=== PATIENT | female | born 1990 | race Caucasian/White ===

== ENCOUNTER 2017-08-29 12:24 | Emergency (ER) | payer BC, OTHER ==
[2017-08-29] MEDS ORDERED: SODIUM CHLORIDE 0.9% 500 ML IV STA (13:33)
[2017-08-29] MEDS ORDERED: SODIUM CHLORIDE 0.9% 1,000 ML IV STA (13:33)
[2017-08-29 13:51] LABS: Basophils % (A) 0 %; Eosinophils # (A) 0.1 k/uL (0-0.7); Eosinophils % (A) 1 %; HCT 41.6 % (34.0-46.0); Lymphocytes # (A) 0.8 k/uL (1.0-4.8); Lymphocytes % (A) 7 %; MCH 29.8 pg (25.0-35.0); MCHC 33.8 g/dL (31.0-37.0); MCV 88.3 fL (80.0-100.0); Monocytes # (A) 0.3 k/uL (0-1.0); Monocytes % (A) 3 %; Neutrophils # (A) 9.9 k/uL (1.3-7.7); Neutrophils % (A) 89 %; Platelet Count 262 k/uL (150-450); RBC 4.71 m/uL (3.80-5.40); RDW 12.3 % (11.5-15.5); WBC 11.2 k/uL (3.8-10.6)
[2017-08-29] MEDS ORDERED: ONDANSETRON 4 MG/2 ML VIAL IVP STA (13:53)
[2017-08-29] MEDS ORDERED: LORazepam 2 MG/ML INJ IV STA (13:53)
[2017-08-29 14:03] LABS: Appearance,Urine Cloudy (Clear); Bilirubin,Urine Negative (Negative); Blood,Urine Negative (Negative); Color,Urine Yellow; Glucose,Urine (UA) Negative (Negative); Ketones,Urine 2+ (Negative); Leukocyte Esterase,Urine Negative (Negative); Mucus,Urine Many /hpf; Nitrite,Urine Negative (Negative); PH, Urine 8.5 (5.0-8.0); Protein,Urine 2+ (Negative); Squamous Epithelial Cell,Urine 7 /hpf (0-4); Urobilinogen,Urine <2.0 mg/dL (<2.0)
[2017-08-29 14:05] LABS: ALT 22 U/L (9-52); AST 21 U/L (14-36); Albumin 4.3 g/dL (3.5-5.0); Alkaline Phosphatase 59 U/L (38-126); Anion Gap 13 mmol/L; Blood Urea Nitrogen 13 mg/dL (7-17); Calcium 10.1 mg/dL (8.4-10.2); Carbon Dioxide 22 mmol/L (22-30); Chloride 105 mmol/L (98-107); Glucose 109 mg/dL (74-99); Magnesium 1.8 mg/dL (1.6-2.3); Potassium 4.2 mmol/L (3.5-5.1); Sodium 140 mmol/L (137-145); Total Bilirubin 1.7 mg/dL (0.2-1.3)
--- NOTE | 2017-08-29 14:06 | ED ---
Syncope HPI - General Chief Complaint: Syncope Stated Complaint: Syncope Time Seen by Provider: 08/29/17 13:32 Source: patient, RN notes reviewed Mode of arrival: ambulatory Limitations: no limitations - History of Present Illness Initial Comments: 26-year-old female presents emergency Department with chief complaint of passing out. Patient states that she passed out while at home. She states that she knows that she passed out because she states that she was on the ground and next thing no her that daughter was talking to her. Patient states that she's had no chest pain or shortness breath. Patient said very anxious and worked up at this time. Patient did have an episode of vomiting and complains of being nauseated. Patient states that she's had this happen in the past. Patient denies any fever, chills. No cough or chest congestion. Patient denies any abdominal pain. Patient states she was started on Lexapro yesterday has taken 2 doses. - Related Data Home Medications Medication Instructions Recorded Confirmed Cariprazine HCl [Vraylar] 1.5 mg PO HS 08/29/17 08/29/17 Escitalopram [Lexapro] 10 mg PO HS 08/29/17 08/29/17 Previous Rx's Medication Instructions Recorded Ondansetron Odt [Zofran Odt] 4 mg PO Q8HR PRN #10 tab 08/29/17 Allergies Allergy/AdvReac Type Severity Reaction Status Date / Time No Known Allergies Allergy Verified 08/29/17 12:53 Review of Systems ROS Statement: Those systems with pertinent positive or pertinent negative responses have been documented in the HPI. ROS Other: All systems not noted in ROS Statement are negative. Past Medical History Past Medical History: No Reported History History of Any Multi-Drug Resistant Organisms: None Reported Past Surgical History: No Surgical Hx Reported Past Psychological History: Anxiety Smoking Status: Former smoker Past Alcohol Use History: Occasional Past Drug Use History: None Reported General Exam Limitations: no limitations General appearance: alert, in no apparent distress, anxious Head exam: Present: atraumatic, normocephalic, normal inspection Eye exam: Present: normal appearance, PERRL, EOMI. Absent: scleral icterus, conjunctival injection, periorbital swelling ENT exam: Present: normal exam, mucous membranes moist Neck exam: Present: normal inspection. Absent: tenderness, meningismus, lymphadenopathy Respiratory exam: Present: normal lung sounds bilaterally. Absent: respiratory distress, wheezes, rales, rhonchi, stridor Cardiovascular Exam: Present: regular rate, normal rhythm, normal heart sounds. Absent: systolic murmur, diastolic murmur, rubs, gallop, clicks GI/Abdominal exam: Present: soft, normal bowel sounds. Absent: distended, tenderness, guarding, rebound, rigid Back exam: Absent: CVA tenderness (R), CVA tenderness (L) Neurological exam: Present: alert, oriented X3, CN II-XII intact, reflexes normal. Absent: motor sensory deficit Psychiatric exam: Present: anxious Skin exam: Present: warm, dry, intact, normal color. Absent: rash Course Vital Signs 08/29/17 08/29/17 08/29/17 12:46 13:51 15:09 Temperature 97.6 F Pulse Rate 100 92 89 Respiratory 22 18 17 Rate Blood Pressure 106/63 118/77 O2 Sat by Pulse 100 100 100 Oximetry EKG Findings - EKG Comments: EKG Findings:: EKG performed at 13:49 normal sinus rhythm with a rate of 91 MO interval 156 QRS 86 QT/QTC 360/442 Medical Decision Making - Medical Decision Making 26-year-old female presents primarily for syncopal episode, dizziness and and felt nauseated. Patient was hydrated, given antiemetics. Patient is she does feel improved at this time. Patient's labwork, EKG unremarkable. Patient be discharged. - Lab Data Result diagrams: 08/29/17 13:41 08/29/17 13:41 Lab Results 08/29/17 08/29/17 08/29/17 Range/Units 13:41 13:41 13:41 WBC 11.2 H (3.8-10.6) k/uL RBC 4.71 (3.80-5.40) m/uL Hgb 14.0 (11.4-16.0) gm/dL Hct 41.6 (34.0-46.0) % MCV 88.3 (80.0-100.0) fL MCH 29.8 (25.0-35.0) pg MCHC 33.8 (31.0-37.0) g/dL RDW 12.3 (11.5-15.5) % Plt Count 262 (150-450) k/uL Neutrophils % 89 % Lymphocytes % 7 % Monocytes % 3 % Eosinophils % 1 % Basophils % 0 % Neutrophils # 9.9 H (1.3-7.7) k/uL Lymphocytes # 0.8 L (1.0-4.8) k/uL Monocytes # 0.3 (0-1.0) k/uL Eosinophils # 0.1 (0-0.7) k/uL Basophils # 0.0 (0-0.2) k/uL Sodium 140 (137-145) mmol/L Potassium 4.2 (3.5-5.1) mmol/L Chloride 105 (98-107) mmol/L Carbon Dioxide 22 (22-30) mmol/L Anion Gap 13 mmol/L BUN 13 (7-17) mg/dL Creatinine 0.65 (0.52-1.04) mg/dL Est GFR (CKD-EPI)AfAm >90 (>60 ml/min/1.73 sqM) Est GFR (CKD-EPI)NonAf >90 (>60 ml/min/1.73 sqM) Glucose 109 H (74-99) mg/dL Calcium 10.1 (8.4-10.2) mg/dL Magnesium 1.8 (1.6-2.3) mg/dL Total Bilirubin 1.7 H (0.2-1.3) mg/dL AST 21 (14-36) U/L ALT 22 (9-52) U/L Alkaline Phosphatase 59 (38-126) U/L Troponin I <0.012 (0.000-0.034) ng/mL Total Protein 7.0 (6.3-8.2) g/dL Albumin 4.3 (3.5-5.0) g/dL Urine Color Urine Appearance (Clear) Urine pH (5.0-8.0) Ur Specific Lee (1.001-1.035) Urine Protein (Negative) Urine Glucose (UA) (Negative) Urine Ketones (Negative) Urine Blood (Negative) Urine Nitrite (Negative) Urine Bilirubin (Negative) Urine Urobilinogen (<2.0) mg/dL Ur Leukocyte Esterase (Negative) Ur Squamous Epith Cells (0-4) /hpf Urine Mucus (None) /hpf Urine HCG, Qual (Not Detectd) 08/29/17 08/29/17 Range/Units 13:41 13:41 WBC (3.8-10.6) k/uL RBC (3.80-5.40) m/uL Hgb (11.4-16.0) gm/dL Hct (34.0-46.0) % MCV (80.0-100.0) fL MCH (25.0-35.0) pg MCHC (31.0-37.0) g/dL RDW (11.5-15.5) % Plt Count (150-450) k/uL Neutrophils % % Lymphocytes % % Monocytes % % Eosinophils % % Basophils % % Neutrophils # (1.3-7.7) k/uL Lymphocytes # (1.0-4.8) k/uL Monocytes # (0-1.0) k/uL Eosinophils # (0-0.7) k/uL Basophils # (0-0.2) k/uL Sodium (137-145) mmol/L Potassium (3.5-5.1) mmol/L Chloride (98-107) mmol/L Carbon Dioxide (22-30) mmol/L Anion Gap mmol/L BUN (7-17) mg/dL Creatinine (0.52-1.04) mg/dL Est GFR (CKD-EPI)AfAm (>60 ml/min/1.73 sqM) Est GFR (CKD-EPI)NonAf (>60 ml/min/1.73 sqM) Glucose (74-99) mg/dL Calcium (8.4-10.2) mg/dL Magnesium (1.6-2.3) mg/dL Total Bilirubin (0.2-1.3) mg/dL AST (14-36) U/L ALT (9-52) U/L Alkaline Phosphatase (38-126) U/L Troponin I (0.000-0.034) ng/mL Total Protein (6.3-8.2) g/dL Albumin (3.5-5.0) g/dL Urine Color Yellow Urine Appearance Cloudy H (Clear) Urine pH 8.5 H (5.0-8.0) Ur Specific Lee 1.020 (1.001-1.035) Urine Protein 2+ H (Negative) Urine Glucose (UA) Negative (Negative) Urine Ketones 2+ H (Negative) Urine Blood Negative (Negative) Urine Nitrite Negative (Negative) Urine Bilirubin Negative (Negative) Urine Urobilinogen <2.0 (<2.0) mg/dL Ur Leukocyte Esterase Negative (Negative) Ur Squamous Epith Cells 7 H (0-4) /hpf Urine Mucus Many H (None) /hpf Urine HCG, Qual Not Detected (Not Detectd) Disposition Clinical Impression: Vasovagal syncope, Dehydration, Nausea & vomiting Disposition: HOME SELF-CARE Condition: Stable Instructions: Syncope (ED) Additional Instructions: Please return to the Emergency Department if symptoms worsen or any other concerns. Prescriptions: Ondansetron Odt [Zofran Odt] 4 mg PO Q8HR PRN #10 tab PRN Reason: Nausea Referrals: Cristian Reinoso DO [Primary Care Provider] - 1-2 days Time of Disposition: 15:27
[2017-08-29] MEDS ORDERED: SODIUM CHLORIDE 0.9% 1,000 ML IV ONE (14:19)
[2017-08-29] MEDS ORDERED: METOCLOPRAMIDE 5 MG/ML 2 ML VIAL IVP STA (14:54)
[2017-08-29 15:10] VITALS: RESP 17
[2017-08-29] MEDS ORDERED: KETOROLAC 30 MG/ML 1 ML VIAL IVP STA (15:35)
[2017-08-29 15:54] VITALS: BP 114/70; PULSE 86; TEMP 97.7
== END 2017-08-29 15:52 | disposition home or self-care (01) ==
LOC: EC 12:24
DX: E86.0 Dehydration (principal); R55 Syncope and collapse; R11.2 Nausea with vomiting, unspecified; F41.9 Anxiety disorder, unspecified; Z87.891 Personal history of nicotine dependence; Z79.899 Other long term (current) drug therapy
CPT/HCPCS: 36415; 93005; 80053; 83735; 84484; 85025; 81001; 81025; 99284; 96374; 96375 ×3; 96361 ×2; J2060; J2765; J2405; J1885

== ENCOUNTER → 2018-07-29 | Outpatient (CLI) | payer OTHER ==
[2018-07-30 00:19] LABS: DHEA Sulfate 174.4 ug/dL (26.0-430.0)
[2018-07-30 00:21] LABS: Progesterone 0.5 ng/mL
== END ==
LOC: LABWHC1 15:52
PROVIDERS: ATTEND Obstetrics & Gynecology
DX: N97.0 Female infertility associated with anovulation (principal)
CPT/HCPCS: 36415; 82627; 82670; 83001; 83002; 84144; 84146; 84403

== ENCOUNTER 2019-05-03 21:51 | Observation (INO) | payer OTHER ==
[2019-05-03] MEDS ORDERED: ONDANSETRON 4 MG/2 ML VIAL IVP STA (22:38)
[2019-05-03] MEDS ORDERED: MORPHINE SULFATE 4 MG/ML SYRINGE IVP STA (22:39)
[2019-05-03 22:51] LABS: Basophils % (A) 0 %; Eosinophils # (A) 0.1 k/uL (0-0.7); Eosinophils % (A) 1 %; HCT 33.6 % (34.0-46.0); HGB 11.9 gm/dL (11.4-16.0); Lymphocytes # (A) 1.3 k/uL (1.0-4.8); Lymphocytes % (A) 23 %; MCHC 35.4 g/dL (31.0-37.0); MCV 90.2 fL (80.0-100.0); Mean Platelet Volume 7.2; Monocytes # (A) 0.3 k/uL (0-1.0); Monocytes % (A) 4 %; Neutrophils % (A) 70 %; Platelet Count 275 k/uL (150-450); RBC 3.72 m/uL (3.80-5.40); WBC 5.7 k/uL (3.8-10.6)
[2019-05-03 23:01] LABS: ALT 18 U/L (9-52); AST 21 U/L (14-36); African American GFR (CKD) >90 (>60 ml/min/1.73 sqM); Albumin 4.4 g/dL (3.5-5.0); Alkaline Phosphatase 47 U/L (38-126); Anion Gap 9 mmol/L; Blood Urea Nitrogen 11 mg/dL (7-17); Calcium 9.7 mg/dL (8.4-10.2); Carbon Dioxide 22 mmol/L (22-30); Chloride 104 mmol/L (98-107); Glucose 112 mg/dL (74-99); Non-African American GFR(CKD) >90 (>60 ml/min/1.73 sqM); Potassium 3.8 mmol/L (3.5-5.1); Sodium 135 mmol/L (137-145); Total Bilirubin 0.7 mg/dL (0.2-1.3); Total Protein 6.9 g/dL (6.3-8.2)
--- NOTE | 2019-05-03 23:25 | ED ---
Abdominal Pain HPI - General Chief Complaint: Abdominal Pain Stated Complaint: 8 weeks pg abd pain Time Seen by Provider: 05/03/19 22:07 Source: patient Mode of arrival: ambulatory Limitations: no limitations - History of Present Illness Initial Comments: Sheila is a 78 is a healthy female who currently believe she is 8-9 weeks last menses was March 04 she's not had any ultrasounds or OB appointments in this as of yet. Patient presents the ER today for evaluation of sudden onset lower abdominal pain, cramping with no vaginal bleeding or discharge. Patient reports she was in her usual state of health this evening, she went to work and went while at work developed sudden onset of lower abdominal pain. - Related Data Allergies Allergy/AdvReac Type Severity Reaction Status Date / Time No Known Allergies Allergy Verified 05/03/19 22:06 Review of Systems ROS Statement: Those systems with pertinent positive or pertinent negative responses have been documented in the HPI. ROS Other: All systems not noted in ROS Statement are negative. Past Medical History Past Medical History: No Reported History History of Any Multi-Drug Resistant Organisms: None Reported Past Surgical History: Orthopedic Surgery Past Psychological History: Anxiety Smoking Status: Former smoker Past Alcohol Use History: None Reported Past Drug Use History: None Reported General Exam - General Exam Comments Initial Comments: Physical Exam GENERAL: Patient is well-developed and well-nourished. Patient is nontoxic and well- hydrated and is in no distress. HENT: Normocephalic, Atraumatic. EYES: PERRL, EOMI PULMONARY: Unlabored respirations. No audible rales rhonchi or wheezing was noted. CARDIOVASCULAR: There is a regular rate and rhythm without any murmurs gallops or rubs. ABDOMEN: Tenderness to palpation in lower abdomen with guarding Bedside ultrasound with no obvious free fluid in pelvis, splenorenal or hepatorenal areas, however uterus appeared empty and patient had significant pain with exam SKIN: Skin is clear with no lesions or rashes and otherwise unremarkable. : Deferred NEUROLOGIC: Patient is alert and oriented x3. Moving all extremities spontaneously MUSCULOSKELETAL: Normal extremities with adequate strength and full range of motion. No lower extremity swelling or edema. No calf tenderness. PSYCHIATRIC: Normal psychiatric evaluation. Limitations: no limitations Course Vital Signs 05/03/19 05/03/19 05/03/19 22:03 22:51 23:55 Temperature 97.4 F L 97.5 F L Pulse Rate 77 83 Respiratory 28 H 20 16 Rate Blood Pressure 111/77 125/84 102/74 O2 Sat by Pulse 100 100 Oximetry 05/04/19 00:00 Temperature Pulse Rate Respiratory Rate Blood Pressure 109/90 O2 Sat by Pulse Oximetry Medical Decision Making - Medical Decision Making The patient was seen and evaluated, history was obtained from patient and at bedside 8-9 week 28-year-old female with severe lower abdominal pain no obvious free fluid on bedside ultrasound Labs and ultrasound imaging were ordered Zofran and Morphine were ordered Labs resulted with a stable hemoglobin, normal kidney function and electrolytes Patient remained hemodynamically stable Pain was not well-controlled with initial dose of morphine and Dilaudid was ordered Ultrasound results and with concerns for an ectopic measuring 7 x 3 x 2 cm in the left ovary with debris and complex fluid in the pelvis At this time BHCG has not resulted - I contacted labs that reported that the beta hCG was significantly elevated and being diluted for results Patient was updated on these findings, patient has previously Dr. with Dr. Spears therefore his group was paged Patient care was discussed with Dr. Bowen who will plan for emergent exploratory laparoscopy The patient was updated on this plan as well The patient remained hemodynamically stable with pain only moderately controlled with repeat doses of analgesia, Dr. Carr arrived at bedside for preoperative evaluation and transferred patient to the operating suite - Lab Data Result diagrams: 05/03/19 21:05 05/03/19 21:05 Lab Results 05/03/19 05/03/19 05/03/19 Range/Units 21:05 21:05 21:05 WBC 5.7 (3.8-10.6) k/uL RBC 3.72 L (3.80-5.40) m/uL Hgb 11.9 (11.4-16.0) gm/dL Hct 33.6 L (34.0-46.0) % MCV 90.2 (80.0-100.0) fL MCH 32.0 (25.0-35.0) pg MCHC 35.4 (31.0-37.0) g/dL RDW 12.0 (11.5-15.5) % Plt Count 275 (150-450) k/uL Neutrophils % 70 % Lymphocytes % 23 % Monocytes % 4 % Eosinophils % 1 % Basophils % 0 % Neutrophils # 4.0 (1.3-7.7) k/uL Lymphocytes # 1.3 (1.0-4.8) k/uL Monocytes # 0.3 (0-1.0) k/uL Eosinophils # 0.1 (0-0.7) k/uL Basophils # 0.0 (0-0.2) k/uL Sodium 135 L (137-145) mmol/L Potassium 3.8 (3.5-5.1) mmol/L Chloride 104 (98-107) mmol/L Carbon Dioxide 22 (22-30) mmol/L Anion Gap 9 mmol/L BUN 11 (7-17) mg/dL Creatinine 0.65 (0.52-1.04) mg/dL Est GFR (CKD-EPI)AfAm >90 (>60 ml/min/1.73 sqM) Est GFR (CKD-EPI)NonAf >90 (>60 ml/min/1.73 sqM) Glucose 112 H (74-99) mg/dL Calcium 9.7 (8.4-10.2) mg/dL Total Bilirubin 0.7 (0.2-1.3) mg/dL AST 21 (14-36) U/L ALT 18 (9-52) U/L Alkaline Phosphatase 47 (38-126) U/L Total Protein 6.9 (6.3-8.2) g/dL Albumin 4.4 (3.5-5.0) g/dL HCG, Quant 08357.8 mIU/mL Blood Type O Positive Blood Type Recheck O Pos Bld Type Recheck Status No Antibody Screen NEGATIVE Critical Care Time Critical Care Time: Yes Total Critical Care Time: 30 Critical Care Time: Critical Care Time Critical care time was exclusive of separately billable procedures and treating other patients and teaching time. Critical care was necessary to treat or prevent imminent or life-threatening deterioration. Given the critical condition in which the patient arrived, the patient was immediately assessed by myself and the nurse, and cardiac monitoring initiated due to the potential for rapid decompensation of the patient's clinical condition. During the course of the patients stay, I spent a considerable amount of time at the bedside performing serial re-evaluations of the patient's hemodynamic and clinical status because of the recognized potential threat to life or limb in this condition. I then had a chance to review not only all of the available current laboratory and radiographic studies obtained today, but I also reviewed old records available to me at the time. Additionally, any ancillary information available including monotype setter records were reviewed. Sequential vital signs were obtained. Disposition Clinical Impression: Ectopic Disposition: ADMITTED IP TO THIS HOSP Condition: Serious Is patient prescribed a controlled substance at d/c from ED?: No
[2019-05-03] MEDS ORDERED: HYDROmorphone 1 MG/ML 1 ML SYRINGE IVP STA (23:45)
--- NOTE | 2019-05-03 23:45 | US ---
EXAMINATION TYPE: Transabdominal DATE OF EXAM: 05/03/2019 11:27 PM COMPARISON: [facility] 2016 CLINICAL HISTORY: pain concern for ectopic. Pain since 9 pm. Concern for ectopic. . EXAM PERFORMED: Transvaginal (TV) and Transabdominal (TA) EXAM MEASUREMENTS: GESTATIONAL AGE / DATING Physician Established: Not yet established Dates by LMP: (8 weeks/4 days) EDC: 12/09/2019 Dates by First Scan: This is first scan Dates by Current Scan for: No sign of IUP at this time. MATERNAL ANATOMY Uterus: 8.8 x 5.3 x 4.3 cm. Endometrium appears thickened. Right Ovary: 5.0 x 2.8 x 3.2 cm. Appears enlarged. Follicles seen. Left Ovary: 3.7 x 2.5 x 2.4 cm. Follicles seen. Post CDS / Adnexa: Large amount of complex fluid seen. Echogenic area measured adjacent to the left o vary: 7.1 x 3.0 x 2.0 cm. Presence of free fluid: Yes, large amount of complex fluid seen. Debris seen. Presence of corpus luteal cyst: not seen GESTATION / SURVEY IUP: No IUP seen at this time Date of LMP: 03/04/2019 Beta HcG (if available): Not available. Patient in severe pain. Limited transabdominal scan. IMPRESSION: The uterus is empty. There is complex fluid in the pelvis and 7 x 3 cm x 2 cm area of ech ogenicity in the left adnexal region. Ectopic is suspected. This exam was discussed with ER physician at 11:45 PM..
[2019-05-03 23:56] LABS: HCG,Quantitative Serum 19498.8 mIU/mL
[2019-05-04] MEDS ORDERED: ONDANSETRON 4 MG/2 ML VIAL IVP PRN ×2 (00:16→03:36)
[2019-05-04] MEDS ORDERED: NALOXONE 0.4 MG/ML 1 ML VIAL IV PRN ×2 (00:16→03:36)
[2019-05-04] MEDS ORDERED: MORPHINE SULFATE 4 MG/ML SYRINGE IV PRN (00:16)
[2019-05-04] MEDS ORDERED: SODIUM CHLORIDE 0.9% 1,000 ML IV SCH (00:30)
--- NOTE | 2019-05-04 01:15 | P.HPOB ---
History of Present Illness H&P Date: 05/04/19 Chief Complaint: Severe abdominal pain This is a 28-year-old female 2 para 1 with a last menstrual period of 03/04/2019 who presents to the emergency room with severe lower abdominal pain that began at 9:20 PM tonight. She has been feeling nauseated but this is been normal throughout her . She denies any vaginal bleeding. She states the pain is all away across her lower abdomen and it hurts to move at all. Ultrasound in ER shows a uterus with no IUP seen. There is a large complex fluid collection adjacent to the left ovary measuring 7.1 x 3 x 2 cm with debris and fluid seen in the cul-de-sac. Right ovary is slightly enlarged and left ovary appears normal size. Her blood type is positive. Her vital signs are stable. Obstetrical history: . History of 1 vaginal delivery at term. Gynecologic history: No history of sexual transmitted diseases. Social history: She is and works at [employer]. Review of Systems Constitutional: Denies chills, Denies fever Eyes: denies blurred vision, denies pain Ears, nose, mouth and throat: Denies headache, Denies sore throat Cardiovascular: Denies chest pain, Denies shortness of breath Gastrointestinal: Reports abdominal pain, Reports nausea, Reports vomiting Genitourinary: Reports pelvic pain, Reports , Denies abnormal vaginal bleeding Musculoskeletal: Reports low back pain Neurological: Denies numbness, Denies weakness Psychiatric: Denies anxiety, Denies depression Past Medical History Past Medical History: No Reported History History of Any Multi-Drug Resistant Organisms: None Reported Past Surgical History: Orthopedic Surgery (Left shoulder) Past Psychological History: Anxiety Smoking Status: Former smoker Past Alcohol Use History: None Reported Past Drug Use History: None Reported Medications and Allergies Allergies Allergy/AdvReac Type Severity Reaction Status Date / Time No Known Allergies Allergy Verified 05/03/19 22:06 Exam Osteopathic Statement: *. No significant issues noted on an osteopathic structural exam other than those noted in the History and Physical/Consult. Vital Signs Temp Pulse Resp BP Pulse Ox 05/04/19 00:00 109/90 05/03/19 23:55 97.5 F L 83 16 102/74 100 05/03/19 22:51 20 125/84 05/03/19 22:03 97.4 F L 77 28 H 111/77 100 Intake and Output 05/03/19 05/03/19 05/04/19 14:59 22:59 06:59 Other: Weight 61.235 kg Gen.: Well-developed well-nourished female in acute distress when moving. HEENT: Within normal limits Heart: Regular rate and rhythm Lungs: Clear to auscultation bilaterally Abdomen: Soft, tender to palpation in the lower abdomen especially with rebound and guarding. Pelvic exam: Deferred to the OR. Extremities: Negative Homans Results Result Diagrams: 05/03/19 21:05 05/03/19 21:05 Abnormal Lab Results - Last 24 Hours (Table) 05/03/19 05/03/19 Range/Units 21:05 21:05 RBC 3.72 L (3.80-5.40) m/uL Hct 33.6 L (34.0-46.0) % Sodium 135 L (137-145) mmol/L Glucose 112 H (74-99) mg/dL Assessment and Plan (1) Ectopic Current Visit: Yes Status: Acute Code(s): O00.90 - UNSPECIFIED ECTOPIC WITHOUT INTRAUTERINE SNOMED Code(s): 82799919 (2) Acute abdominal pain Current Visit: Yes Status: Acute Code(s): R10.9 - UNSPECIFIED ABDOMINAL PAIN SNOMED Code(s): 945211222 Plan: Admission for probable ectopic . I have discussed with the patient and her the need to proceed with exploratory laparotomy with possible salpingectomy and possible oophorectomy due to probable ruptured ectopic. I have explained the risks and benefits of surgery in detail to patient and her . I've advised based on the size of this mass in her abdomen, it is necessary to proceed with laparotomy versus laparoscopy in this instance. She understands and has signed consent forms. I have discussed the risks, benefits, and alternative therapies for the above- mentioned procedure and for both sedation/anesthesia as well as necessary blood products administration, if indicated, as they pertain to this patient. The patient has indicated her understanding and acceptance of the risks and procedures discussed.
[2019-05-04] MEDS ORDERED: GLYCOPYRROLATE 0.2 MG/ML 2 ML VIAL ONE (01:35)
[2019-05-04] MEDS ORDERED: LIDOCAINE 1% INJ 10MG/ML (20 ML MDV) ONE (01:35)
[2019-05-04] MEDS ORDERED: MIDAZOLAM 2 MG/2 ML VIAL ONE (01:35)
[2019-05-04] MEDS ORDERED: NEOSTIGMINE 1 MG/ML 10 ML VIAL ONE (01:35)
[2019-05-04] MEDS ORDERED: PROPOFOL 10 MG/ML 20 ML VIAL IV ONE (01:35)
[2019-05-04] MEDS ORDERED: fentaNYL (PF) 50 MCG/ML 2 ML AMP ONE (01:35)
[2019-05-04] MEDS ORDERED: LACTATED RINGERS 1,000 ML IV ONE ×2 (01:35→02:13)
[2019-05-04] MEDS ORDERED: ROCURONIUM BROMIDE 10 MG/ML 10 ML VIAL IV ONE (01:35)
[2019-05-04] MEDS ORDERED: SUCCINYLCHOLINE CHLORIDE 100 MG/5 ML SYR IV ONE (01:35)
[2019-05-04] MEDS ORDERED: PHENYLEPHRINE-0.9% NACL SYG 1 MG/10 ML SYRINGE ONE (01:35)
[2019-05-04] MEDS ORDERED: ceFAZolin 1,000 MG VIAL ONE (01:35)
--- NOTE | 2019-05-04 02:40 | P.OP ---
Date of Procedure: 05/04/19 Preoperative Diagnosis: Probable ruptured ectopic Postoperative Diagnosis: Ruptured right tubal ectopic Procedure(s) Performed: Exploratory laparotomy Right salpingectomy Evacuation of hemoperitoneum Anesthesia: EMILY Surgeon: Suzy Bowen Control Panel Assembler #1: Juliet Ruffin Estimated Blood Loss (ml): 20 (500 mL of hemoperitoneum was evacuated) Pathology: other (Right fallopian tube with ruptured ectopic) Condition: stable Disposition: floor Indications for Procedure: This is a 28-year-old female 2 para 1 who presented to the emergency room with acute abdominal pain and ultrasound showing likely ruptured ectopic . She consented to exploratory laparotomy with possible appendectomy, possible oophorectomy. I have discussed the risks, benefits, and alternative therapies for the above- mentioned procedure and for both sedation/anesthesia as well as necessary blood products administration, if indicated, as they pertain to this patient. The patient has indicated her understanding and acceptance of the risks and pr ocedures discussed. Operative Findings: There is a ectopic in the right fallopian tube very close to the corneal region and in this area there is a hole in the tube were most likely the ectopic was expelled. A large amount of blood clot and hemoperitoneum was noted in the pelvic cul-de-sac, proximally 500 mL worth. The left fallopian tube appeared normal. Both ovaries appeared normal. Of note, both fallopian tubes did appear fairly long. Uterus appeared normal. Description of Procedure: The patient was taken to the operating room where she is placed in the dorsal supine position. She is prepped and draped in the normal sterile fashion including Luther catheter insertion. A small Pfannenstiel skin incision was made with a scalpel. A second knife was used to carry the incision down to the underlying layer of fascia. The fascia was nicked in the midline and extended laterally bilaterally with Brooke scissors. The superior aspect of the fascial incision was grasped with Brayden clamps, and dissected off the underlying rectus muscle in the midline with Brooke scissors. The inferior aspect of the fascial incision was then grasped with Brayden clamps, dissected off the underlying rectus muscle in the midline with Brooke scissors. Next the peritoneum was identified and tented up with 2 hemostats. This was entered sharply with the scalpel and then extended superiorly and in fairly with Metzenbaum scissors. Suction was also placed immediately upon opening due to a large amount of blood in the pelvis. Suctioning was carried out until the uterus was visible. Multiple clots were removed. The right fallopian tube was inspected and the ectopic was noted near the corneal region of the uterus and the proximal tube and there was a small hole in the tube at this area. The fallopian tube was grasped with a Elsi clamp as close to the corneal region as possible and then a second Elsi clamp was used to clamp the remainder of the mesosalpinx. The tube was then removed with Metzenbaum scissors and sent to pathology. The pedicles are then sutured with 0 Vicryl suture in interrupted [id number] stitch. Several interrupted stitches were also placed for hemostasis. Once good hemostasis was noted, copious irrigation was carried out with warm saline. The area appeared hemostatic. All sponges were removed and sponge counts were correct. All retractors were removed. Peritoneum was then sutured with 0 Vicryl suture in a running fashion. Muscle layers reapproximated with 0 Vicryl suture in interrupted fashion. Next the fascia was then closed with 0 PDS suture with 2 sutures meeting in the midline and the knots buried on either side and in the midline. Next the subcutaneous tissue was closed with 2- 0 Vicryl suture in a running fashion. Skin was then closed with shannan. All sponge and needle counts are correct. The patient is then taken to recovery room in stable condition.
[2019-05-04] MEDS: HYDROmorphone 0.5 MG/0.5 ML SYRINGE IVP PRN ×2 (03:02→03:12)
[2019-05-04] MEDS: LACTATED RINGERS 1,000 ML IV SCH ×4 (03:05→19:22)
[2019-05-04] MEDS ORDERED: LACTATED RINGERS 1,000 ML IV SCH (03:36)
[2019-05-04] MEDS ORDERED: SIMETHICONE 80 MG CHEWABLE PO PRN (03:36)
[2019-05-04] MEDS ORDERED: METOCLOPRAMIDE 5 MG/ML 2 ML VIAL IVP PRN (03:36)
[2019-05-04] MEDS ORDERED: IBUPROFEN 600 MG TAB PO PRN (03:36)
[2019-05-04] MEDS ORDERED: diphenhydrAMINE 50 MG/ML 1 ML VIAL IVP PRN (03:36)
[2019-05-04] MEDS ORDERED: HYDROmorphone PCA 10 MG/50 ML BAG IV PRN (04:00)
[2019-05-04] MEDS: SENNOSIDES-DOCUSATE SODIUM 1 EACH TAB PO SCH ×2 (08:19→20:05)
[2019-05-04] MEDS: KETOROLAC 30 MG/ML 1 ML VIAL IVP PRN ×2 (12:34→20:09)
[2019-05-04] MEDS ORDERED: diphenhydrAMINE 50 MG/ML 1 ML VIAL IVP STA (12:45)
[2019-05-04] MEDS ORDERED: diphenhydrAMINE 50 MG/ML 1 ML VIAL IM STA (12:51)
[2019-05-04 14:18] VITALS: RESP 18
[2019-05-04] MEDS ORDERED: Acetaminophen-Codeine 300-30mg TAB PO PRN ×2 (17:10)
[2019-05-05] MEDS: LACTATED RINGERS 1,000 ML IV SCH ×2 (00:06→11:38)
[2019-05-05] MEDS ORDERED: ACETAMINOPHEN TAB 325 MG TAB PO PRN (01:31)
[2019-05-05] MEDS: KETOROLAC 30 MG/ML 1 ML VIAL IVP PRN (04:08)
[2019-05-05 04:33] VITALS: TEMP 98.7
[2019-05-05 06:09] VITALS: BP 104/65; PULSE 107
[2019-05-05] MEDS: SENNOSIDES-DOCUSATE SODIUM 1 EACH TAB PO SCH (08:16)
[2019-05-05 08:30] LABS: Basophils % (A) 0 %; Eosinophils % (A) 1 %; HCT 20.4 % (34.0-46.0); Lymphocytes # (A) 0.9 k/uL (1.0-4.8); Lymphocytes % (A) 22 %; MCH 31.1 pg (25.0-35.0); MCHC 33.4 g/dL (31.0-37.0); MCV 93.1 fL (80.0-100.0); Mean Platelet Volume 8.2; Monocytes # (A) 0.2 k/uL (0-1.0); Monocytes % (A) 5 %; Neutrophils # (A) 2.8 k/uL (1.3-7.7); Neutrophils % (A) 71 %; Platelet Count 193 k/uL (150-450); RBC 2.19 m/uL (3.80-5.40); RDW 12.2 % (11.5-15.5)
[2019-05-05 08:37] LABS: HGB 6.8 gm/dL (11.4-16.0)
--- NOTE | 2019-05-26 00:35 | P.DS ---
Providers Date of admission: 05/04/19 00:17 Expected date of discharge: 05/05/19 Attending physician: Suzy Bowen Primary care physician: Cristian Reinoso - Discharge Diagnosis(es) (1) Ectopic Status: Acute (2) Status post exploratory laparotomy Status: Acute Hospital Course: Patient presented with ruptured ectopic . She underwent an exploratory laparotomy and right salpingectomy. She was discharged postoperative day #1 in stable condition to follow-up with me in one week. Patient Condition at Discharge: Serious Plan - Discharge Summary Discharge Rx Participant: Yes New Discharge Prescriptions: New Ibuprofen [Motrin] 600 mg PO Q6HR PRN #30 tab PRN Reason: Mild Discomfort Acetaminophen-Codeine 300-30mg [Tylenol w/codeine #3] 2 each PO Q6HR PRN #24 tab PRN Reason: Pain Ibuprofen [Motrin] 600 mg PO Q6HR PRN #30 tab PRN Reason: Mild Pain Or Fever >= 100.5 Discharge Medication List Acetaminophen-Codeine 300-30mg [Tylenol w/codeine #3] 2 each PO Q6HR PRN #24 tab 05/05/19 [Rx] Ibuprofen [Motrin] 600 mg PO Q6HR PRN #30 tab 05/05/19 [Rx] Ibuprofen [Motrin] 600 mg PO Q6HR PRN #30 tab 05/05/19 [Rx] Follow up Appointment(s)/Referral(s): Carmel Spears DO [Doctor of Osteopathic Medicine] - 05/12/19 1:30 pm Cristian Reinoso DO [Primary Care Provider] - 1-2 days (office will call patient) Discharge Disposition: HOME SELF-CARE
== END 2019-05-05 11:57 | disposition home or self-care (01) ==
LOC: EC 21:51 → 4FBP 05-04 00:17 → 4MS4W 05-04 19:46
PROVIDERS: ADMIT Obstetrics & Gynecology; ATTEND Obstetrics & Gynecology
DX: O00.101 Right tubal pregnancy without intrauterine pregnancy (principal); K66.1 Hemoperitoneum; F41.9 Anxiety disorder, unspecified; Z98.890 Other specified postprocedural states; Z87.891 Personal history of nicotine dependence; Z86.73 Personal history of transient ischemic attack (TIA), and cerebral infarction without residual deficits; Z86.69 Personal history of other diseases of the nervous system and sense organs; Z79.899 Other long term (current) drug therapy
CPT/HCPCS: 96374; 96375; 99285; 36415; 86900; 86901; 88305; 80053; 85025 ×2; 86850; 84702; 76801; 76817; 59120; G0378 ×3; J2250; J2270; J1200; J2710; J2405 ×2; J0690; J2001; J3010; J1885 ×2; J1170 ×3; J2370; J0330; J2704

== ENCOUNTER 2019-11-18 07:53 | Day surgery (SDC) | payer OTHER ==
[2019-11-15 14:34] VITALS: BMI 22.4
--- NOTE | 2019-11-17 22:52 | P.HPOB ---
History of Present Illness H&P Date: 11/17/19 Chief Complaint: MAEGAN-1 with high-grade Pap 29-year-old presents for loop electrocautery excision procedure. She had a high-grade Pap smear with a colposcopy that showed MAEGAN-1. With the discrepancy and 2 Pap smears revealing high-grade lesions, LEEP is indicated. Review of Systems All systems: negative Constitutional: Denies chills, Denies fever Eyes: denies blurred vision, denies pain Ears, nose, mouth and throat: Denies headache, Denies sore throat Cardiovascular: Denies chest pain, Denies shortness of breath Respiratory: Denies cough Gastrointestinal: Denies abdominal pain, Denies diarrhea, Denies nausea, Denies vomiting Genitourinary: Denies dysuria, Denies hematuria Musculoskeletal: Denies myalgias Integumentary: Denies pruritus, Denies rash Neurological: Denies numbness, Denies weakness Psychiatric: Denies anxiety, Denies depression Endocrine: Denies fatigue, Denies weight change Past Medical History Past Medical History: No Reported History Additional Past Medical History / Comment(s): Abnormal pap smear,nexplanon left arm History of Any Multi-Drug Resistant Organisms: None Reported Past Surgical History: Orthopedic Surgery Additional Past Surgical History / Comment(s): laparoscopy rt fallopian tube removal for tubal Past Anesthesia/Blood Transfusion Reactions: No Reported Reaction Additional Past Anesthesia/Blood Transfusion Reaction / Comment(s): no hx blood transfusion Smoking Status: Former smoker - Past Family History Mother Family Medical History: No Reported History Father Additional Family Medical History / Comment(s): glaucoma Medications and Allergies Home Medications Medication Instructions Recorded Confirmed Type No Known Home Medications 11/15/19 11/15/19 History Allergies Allergy/AdvReac Type Severity Reaction Status Date / Time No Known Allergies Allergy Verified 11/15/19 14:28 Exam Osteopathic Statement: *. No significant issues noted on an osteopathic structural exam other than those noted in the History and Physical/Consult. 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 Loop electrocautery excision procedure
[~2019-11-18 07:53] MED LIST: DEXAMETHASONE SOD PHOSPHATE 10 MG/ML 1 ML VIAL IV ONE; HYDROmorphone 0.5 MG/0.5 ML SYRINGE IVP PRN; LACTATED RINGERS 1,000 ML IV SCH; ONDANSETRON 4 MG/2 ML VIAL IVP ONE; Pre Op ABX Message 1 EACH MISC MISCELLANE ONE
[2019-11-18] MEDS ORDERED: ONDANSETRON 4 MG/2 ML VIAL ONE (08:21)
[2019-11-18] MEDS ORDERED: LIDOCAINE 1% (10MG/ML) FOR IV START INTRADERMA ONE (08:30)
[2019-11-18 08:38] VITALS: RESP 16
[2019-11-18] MEDS ORDERED: PROPOFOL 10 MG/ML 20 ML VIAL IV ONE (08:55)
[2019-11-18] MEDS ORDERED: KETOROLAC 30 MG/ML 1 ML VIAL ONE (08:55)
[2019-11-18] MEDS ORDERED: MIDAZOLAM 2 MG/2 ML VIAL ONE (08:55)
[2019-11-18] MEDS ORDERED: LIDOCAINE 1% INJ 10MG/ML (20 ML MDV) ONE (08:55)
[2019-11-18] MEDS ORDERED: fentaNYL (PF) 50 MCG/ML 2 ML AMP ONE (08:55)
[2019-11-18] MEDS ORDERED: FERRIC SUBSULFATE (MONSELS) JAR TOPICAL ONE (09:23)
[2019-11-18] MEDS ORDERED: ACETIC ACID 15 DROPS/ML DROPS MISCELLANE ONE ×2 (09:23)
--- NOTE | 2019-11-18 09:36 | P.OP ---
Date of Procedure: 11/18/19 Preoperative Diagnosis: 1. High-grade Pap smear with MAEGAN-1 on colposcopy Postoperative Diagnosis: 1. High-grade Pap smear with MAEGAN-1 on colposcopy Procedure(s) Performed: Loop electrocautery excision procedure Anesthesia: GETA Surgeon: Carmel Spears Estimated Blood Loss (ml): 1 IV fluids (ml): 300 Urine output (ml): 50 Pathology: other (Cervical cone) Condition: stable Disposition: PACU Operative Findings: Normal appearing cervix Description of Procedure: Patient is taken the operating room where general anesthesia was obtained without difficulty. She is prepped and draped in normal sterile fashion dorsal lithotomy position, legs placed in candycane stirrups. The bladder was drained of all urine. A coated bivalve speculum was placed in the vagina and the cervix was cleaned off with acetic acid. The 2 cm loop is used to obtain a biopsy. The instrument was swept from patient's right to left. The cervical cone biopsy was sent for pathology. The crater left in the cervix was cauterized with the ball cautery. Monsel's was then placed. Excellent hemostasis was achieved. Patient tolerated procedure well, sponge and instrument counts correct 2. She was taken to recovery in stable condition.
[2019-11-18 09:45] VITALS: TEMP 97.9
[2019-11-18 11:16] VITALS: BP 116/74; PULSE 76
== END 2019-11-18 11:25 | disposition home or self-care (01) ==
LOC: OR 07:53
PROVIDERS: ATTEND Obstetrics & Gynecology
DX: D06.7 Carcinoma in situ of other parts of cervix (principal); Z97.5 Presence of (intrauterine) contraceptive device; Z98.890 Other specified postprocedural states; Z90.79 Acquired absence of other genital organ(s); Z87.59 Personal history of other complications of pregnancy, childbirth and the puerperium; Z87.891 Personal history of nicotine dependence; Z83.511 Family history of glaucoma
CPT/HCPCS: 81025; 88307; 57522; J2250; J1100; J2405; J2001; J3010; J1885; J2704; J1170

== ENCOUNTER → 2023-12-09 | Outpatient (CLI) | payer OTHER ==
[2023-12-09 19:36] LABS: Basophils # (A) 0.06 X 10*3/uL (0.00-0.10); Eosinophils # (A) 0.13 X 10*3/uL (0.04-0.35); Eosinophils % (A) 2.2 %; HCT 40.9 % (37.2-46.3); HGB 13.5 g/dL (12.0-15.0); Lymphocytes # (A) 1.91 X 10*3/uL (0.90-5.00); Lymphocytes % (A) 32.4 %; MCH 30.4 pg (27.0-32.0); MCV 92.1 FL (80.0-97.0); Mean Platelet Volume 11.3 FL (9.5-12.2); Monocytes # (A) 0.33 X 10*3/uL (0.20-1.00); Monocytes % (A) 5.6 %; NRBC Per 100 WBC 0 X 10*3/uL (0.00-0.01); Neutrophils # (A) 3.46 X 10*3/uL (1.80-7.70); Neutrophils % (A) 58.6 %; Platelet Count 273 X 10*3/uL (140-440); RBC 4.44 X 10*6/uL (4.10-5.20); RDW 12.1 % (11.5-14.5)
== END | disposition home or self-care (01) ==
LOC: LABPAT 15:19
PROVIDERS: ATTEND Obstetrics & Gynecology
DX: Z30.2 Encounter for sterilization (principal)
CPT/HCPCS: 85025

== ENCOUNTER 2023-12-22 07:22 | Day surgery (SDC) | payer OTHER ==
[2023-12-18 11:04] VITALS: BMI 24.4
[~2023-12-22 07:22] MED LIST changes: -DEXAMETHASONE SOD PHOSPHATE 10 MG/ML 1 ML VIAL IV ONE; -LACTATED RINGERS 1,000 ML IV SCH; -ONDANSETRON 4 MG/2 ML VIAL IVP ONE
[2023-12-22] MEDS: IV FLUID CONTINUATION 1,000 ML IV ONE (07:32)
[2023-12-22] MEDS: SCOPOLAMINE 1 MG/72 HR PATCH TRANSDERM STA (08:01)
[2023-12-22] MEDS: LACTATED RINGERS 1,000 ML IV SCH (08:02)
[2023-12-22] MEDS: ONDANSETRON 4 MG/2 ML VIAL IVP ONE (08:04)
[2023-12-22] MEDS: DEXAMETHASONE SOD PHOSPHATE 4 MG/ML 1 ML VIAL IV ONE (08:05)
[2023-12-22 08:11] VITALS: TEMP 97.8
--- NOTE | 2023-12-22 08:16 | P.HPOB ---
History of Present Illness H&P Date: 12/22/23 Chief Complaint: family planning 33 year old presents for laparoscopic tubal ligation. Review of Systems All systems: negative Constitutional: Denies chills, Denies fever Eyes: denies blurred vision, denies pain Ears, nose, mouth and throat: Denies headache, Denies sore throat Cardiovascular: Denies chest pain, Denies shortness of breath Respiratory: Denies cough Gastrointestinal: Denies abdominal pain, Denies diarrhea, Denies nausea, Denies vomiting Genitourinary: Denies dysuria, Denies hematuria Musculoskeletal: Denies myalgias Integumentary: Denies pruritus, Denies rash Neurological: Denies numbness, Denies weakness Psychiatric: Denies anxiety, Denies depression Endocrine: Denies fatigue, Denies weight change Past Medical History Past Medical History: No Reported History Additional Past Medical History / Comment(s): HX Abnormal pap smear, MIGRAINES History of Any Multi-Drug Resistant Organisms: None Reported Past Surgical History: Cholecystectomy, Orthopedic Surgery Additional Past Surgical History / Comment(s): laparoscopy rt fallopian tube removal for tubal , LT SHOULDER SX Past Anesthesia/Blood Transfusion Reactions: No Reported Reaction Additional Past Anesthesia/Blood Transfusion Reaction / Comment(s): no hx blood transfusion Smoking Status: Former smoker - Past Family History Mother Family Medical History: No Reported History Father Additional Family Medical History / Comment(s): glaucoma Medications and Allergies Home Medications Medication Instructions Recorded Confirmed Type Aspirin/Acetaminophen/Caffeine 1 each PO DIRECTED PRN 12/18/23 12/22/23 History [Excedrin Migraine Caplet] Medroxyprogesterone Acetate 150 mg IM ONCE 12/18/23 12/22/23 History [Depo-Provera] Ubrogepant [Ubrelvy] 100 mg PO DIRECTED PRN 12/18/23 12/22/23 History Allergies Allergy/AdvReac Type Severity Reaction Status Date / Time No Known Allergies Allergy Verified 12/22/23 08:05 Exam Osteopathic Statement: *. No significant issues noted on an osteopathic structural exam other than those noted in the History and Physical/Consult. Vital Signs Temp Pulse Resp BP Pulse Ox 12/22/23 07:57 97.8 F 96 18 139/95 99 Intake and Output 12/21/23 12/22/23 12/22/23 22:59 06:59 14:59 Other: Weight 66.4 kg - OBG Physical Exam Breast: both: normal (no masses) Abdomen: bowel sounds normal, no diffuse tenderness, no bruit present, no guarding noted, no hepatomegaly, no splenomegaly, no mass Vulva: both: normal Vagina: no discharge Cervix: no lesion, no discharge Uterus: normal size, normal contour Adnexa: both: normal Anus/Rectum: normal perianal skin, no rectal mass, no hemorrhoids, heme negative Assessment and Plan (1) Family planning Current Visit: Yes Status: Acute Code(s): Z30.09 - ENCOUNTER FOR OTH GENERAL CNSL AND ADVICE ON CONTRACEPTION SNOMED Code(s): 975961233 Plan: laparoscopic tubal ligation
[2023-12-22] MEDS ORDERED: SUCCINYLCHOLINE CHLORIDE 200 MG/10 ML VIAL IV ONE (08:43)
[2023-12-22] MEDS ORDERED: fentaNYL (PF) 50 MCG/ML 2 ML AMP ONE (08:43)
[2023-12-22] MEDS ORDERED: NEOSTIGMINE 1 MG/ML 10 ML VIAL ONE (08:43)
[2023-12-22] MEDS ORDERED: LIDOCAINE 1% INJ 10MG/ML (20 ML MDV) ONE (08:43)
[2023-12-22] MEDS ORDERED: ROCURONIUM 10 MG/ML (5 ML VIAL) IV ONE (08:43)
[2023-12-22] MEDS ORDERED: GLYCOPYRROLATE 0.2 MG/ML 2 ML VIAL ONE (08:43)
[2023-12-22] MEDS ORDERED: KETOROLAC 15 MG/ML 1 ML VIAL ONE (08:43)
[2023-12-22] MEDS ORDERED: MIDAZOLAM 2 MG/2 ML VIAL ONE (08:43)
[2023-12-22] MEDS ORDERED: PROPOFOL 10 MG/ML 20 ML VIAL IV ONE (08:43)
[2023-12-22] MEDS ORDERED: diphenhydrAMINE 50 MG/ML 1 ML VIAL ONE (08:43)
[2023-12-22] MEDS: BUPIVACAINE (PF) 0.25% 30 ML VIAL SQ ONE ×2 (09:08)
--- NOTE | 2023-12-22 09:31 | P.OP ---
Date of Procedure: 12/22/23 Preoperative Diagnosis: 1. family planning Postoperative Diagnosis: 1.family planning Procedure(s) Performed: laparoscopic tubal ligation-left Anesthesia: CLARAA Surgeon: Carmel Spears Estimated Blood Loss (ml): 2 IV fluids (ml): 300 Urine output (ml): 10 Pathology: none sent Condition: stable Disposition: PACU Operative Findings: normal uterus, missing right fallopian tube and normal left tube, normal ovaries Description of Procedure: Patient was taken to the operating room where general anesthesia was obtained without difficulty. She was prepped and draped in normal sterile fashion in the dorsal lithotomy position, legs placed in the Casey stirrups. Bladder drained of all urine. [place] speculum placed in the vagina and the anterior lip the cervix was grasped with single-tooth tenaculum. The uterus is sounded to 11 cm and the kroner manipulator was placed. Attention was then turned to the abdomen and gloves were changed. A 10 mm infraumbilical incision was made the scalpel and 10 mm optical trocar was placed under direct visualization. A 5 mm suprapubic Incision was made and a 5 mm optical trocar was placed under direct visualization. Survey of the pelvis revealed normal uterus left tube and ovaries. absent rigth fallopian tube consistent with previous surgery. The left fallopian tube was grasped with a Kleppinger and fulgurated 2-3 cm on this side in the ampullar portion. All instruments were then removed from the abdomen and vagina. The 10 mm infraumbilical incision was closed with 0 Vicryl and the fascial layer and then 4-0 Vicryl in a subcuticular fashion. The 5 mm incision was closed with 4-0 Vicryl in a subcuticular fashion. Patient tolerated procedure well, sponge and instrument counts correct 2 and she was taken to recovery room in stable condition.
[2023-12-22 09:59] VITALS: RESP 18
[2023-12-22 10:24] VITALS: BP 113/82; PULSE 82
== END 2023-12-22 10:44 | disposition home or self-care (01) ==
LOC: OR 07:22
PROVIDERS: ATTEND Obstetrics & Gynecology
DX: Z30.2 Encounter for sterilization (principal); Z87.891 Personal history of nicotine dependence; Z90.49 Acquired absence of other specified parts of digestive tract
CPT/HCPCS: 81025; 58670; J2250; J0330; J1200; J1100; J2710; J2405; J2001; J3010; J1885; J2704; J0665; J1596

== ENCOUNTER → 2024-01-07 | Outpatient (CLI) | payer OTHER | END | disposition home or self-care (01) | LOC: LABPRL 09:05 | PROVIDERS: ATTEND Family Medicine | DX: Z00.00 Encounter for general adult medical examination without abnormal findings (principal); E55.9 Vitamin D deficiency, unspecified; R53.83 Other fatigue | CPT/HCPCS: 80053; 80061; 82306; 84439; 84443; 85025; 86663; 86664; 86665 ==

== ENCOUNTER → 2024-05-06 | Outpatient (CLI) | payer OTHER ==
--- NOTE | 2024-05-06 11:39 | XR ---
Cervical spine HISTORY: Neck pain and radiculopathy. COMPARISON: None. TECHNIQUE: 5 views cervical spine were obtained. FINDINGS: The craniovertebral junction relation to prevertebral soft tissues are normal. The cervical vertebral segments are normal in height and alignment there is no fracture or subluxatio n. Cervical disc spaces are well preserved in height. There is no significant degenerative disease. The uncovertebral joints and facet joints are intact. There is no bony neural foraminal stenosis. IMPRESSION: No significant abnormality seen. [facility], , 05/06/2024 11:37 AM
== END | disposition home or self-care (01) ==
LOC: RADXRMAIN 09:54
PROVIDERS: ATTEND Family Medicine
DX: M54.2 Cervicalgia (principal); M54.12 Radiculopathy, cervical region
CPT/HCPCS: 72050